=== PATIENT | male | born 1990 | race Caucasian/White ===

== ENCOUNTER 2017-08-12 17:35 | Emergency (ER) | payer OTHER ==
[~2017-08-12] VITALS: Ht 182.9 cm; Wt 90.7 kg
[2017-08-12] MEDS ORDERED: TDAP [DIPH/PERTUSSIS/TET] 0.5 ML VIAL IM ONE ×2 (19:07→19:30)
--- NOTE | 2017-08-12 19:12 | NUR ---
RECEIVED REPORT FROM ESTRELLITA JAVIER AND ESTRELLITA BURLESON FOR KOMAL.
--- NOTE | 2017-08-12 19:29 | NUR ---
Patient discharged in stable condition under lapd custody. Written and verbal after care instructions given. Patient verbalizes understanding of instruction. ambulatory with a steady gait.
[2017-08-12 19:32] VITALS: BP 128/68
== END 2017-08-12 19:32 ==
LOC: ER 17:39
DX: S61.411A Laceration without foreign body of right hand, initial encounter (principal); Z90.89 Acquired absence of other organs; W45.8XXA Other foreign body or object entering through skin, initial encounter; Y93.89 Activity, other specified; Y92.89 Other specified places as the place of occurrence of the external cause; Y99.8 Other external cause status
CPT/HCPCS: 12002; 90471; 90715; 99284; A4606; A6403; Z7610